=== PATIENT | male | born 1945 ===

== ENCOUNTER 2022-02-05 15:33 | Observation (INO) ==
--- NOTE | 2022-02-05 16:24 | DR.ABDMALE ---
HPI Time seen Time Seen by Provider: 02/05/22 16:23 PCP Primary Care Physician: YANG Complaint Chief Complaint Doctors Comments: 76 y/o male presents with diarrhea x 3 days. Worsened this am. Denies being around any ill individuals, no contact with farm animals, no travel hx. Started with diarrhea, brown initially. Worsened over night, started with bloody stools this am. + having lower abdominal pain, burning sensation, does not radiate. Also having abdominal cramps. Nothing makes it better, nothing makes it worse. Denies fever, did have chills. No recent respiratory illness. Was nauseous, no vomiting. Had a cardiac stent placed 1 week ago, is on plavix. Has a h/o elevated PSA, scheduled for prostate biopsies. Chief Complaint:: PT STATES " I HAVE HAD DIARRHEA FOR 3 DAYS NOW AND THIS MORNING I HAD SEVERE ABD CRAMPS WITH BRIGHT RED BLOODY DIARRHEA. I HAD A STOOL SAMPLE THIS MORNING AT THE HOSPITAL." Self Treatment fo Chief Complaint: LOMOTIOL Reviewed Nurses Notes Review: Yes Mode of arrival Mode of Arrival: Ambulatory Timing Onset of Chief Complaint: 02/02/22 PMH PMH Past Medical History: Yes Past Medical History: Coronary Artery Disease Past Surgical History: Yes Past Surgical History Comment: STENT PLACEMENT DONE LAST FRIDAY PER DAUGHTER Family History History of Family Medical Conditions: Yes Family Medical History: Diabetes Mellitus, Cancer, [place] and Hypertension Social History Does patient currently use any type of tobacco product: No Have you used tobacco products in the last 12 months: No Type of Tobacco Use: None Does any household member use tobacco: No Alcohol Use: None Do you use any recreational Drugs:: No Lives With: Spouse Lives Where: Home Infectious screening In the last 2 months have you had wt loss of >10#?: NO Have you had fever, night sweats or hemotysis?: No Have you traveled outside the country in the last 6 months?: No Isolation: Standard ROS Review of Systems Constitutional: Chills and Weakness Eyes: No Symptoms Reported ENTM: No Symptoms Reported Respiratoy: No Symptoms Reported Cardiovascular: No Symptoms Reported Gastrointestinal/Abdominal: Abdominal Pain, Diarrhea and Nausea Genitourinary: No Symptoms Reported Neurological: Weakness Musculoskeletal: No Symptoms Reported Integumentary: No Symptoms Reported Hematologic/Lymphatic: No Symptoms Reported Psychiatric: No Symptoms Reported All Other Systems: Reviewed and Negative PE Vital Signs Vital Signs: Temp Pulse Resp BP Pulse Ox O2 Del Method 06/29/20 15:55 113/59 02/05/22 18:04 81 22 135/63 97 02/05/22 15:34 98.0 F 84 20 127/75 98 Room Air General General Appearance: Alert and In No Apparent Distress Eyes Eye exam: PERRL Neck Neck Exam: Normal Inspection; negative Tenderness Respiratory Respiratory Exam: Normal Lung Sounds Bilat; negative Accessory Muscle Use or R espiratory Distress Respiratory Exam: Bilateral: Clear to Auscultation Cardiovascular Cardiovascular Exam: Regular Rate, Normal Rhythm and Normal Heart Sounds Abdominal Exam Abdominal Exam: Normal Inspection, Normal Bowel Sounds, Soft and Tenderness (mild, suprapubic region, no guarding or rebound) Back Back Exam: Normal Inspection; negative (R) CVA Tenderness or (L) CVA Tenderness Extremeties Extremities Exam: Normal Inspection; negative Edema Neurologic Neurological Exam: Alert, Oriented X3 and CN II-XII Intact; negative Motor Sensory Deficit Skin Skin Exam: Warm and Dry MDM Differential Diagnosis Differential Diagnosis: Bowel Obstruction, Gastroenteritis, Ischemic Bowel and Urolithiasis COURSE Treatment Treatment: 76 y/o male with 3 days of diarrhea, now bloody, and worsening abdominal pain/cramping. Had stool sample dropped off to lab earlier, + blood and WBCs in stool. W/u initiated. Given IV fluids. 1814 - WBC elevated at 15.4K, CMP acceptable, lactic acid acceptable at 1.2. Discussed with Dr Guillen, will admit for infectious diarrhea. Will treat with IV flagyl/cipro. Will obtain CT of the abd/pelvis. 1955 - CT with sigmoid colitis, has diverticuli, but longer than that. ROR Labs Reviewed Result Diagrams: 02/08/22 05:20 02/08/22 05:20 Laboratory: WBC 15.4 X10^3/uL (3.6-10.0) H 02/05/22 16:50 RBC 5.30 X10^6/uL (4.7-6.0) 02/05/22 16:50 Hgb 15.5 g/dL (13.5-18.0) 02/05/22 16:50 Hct 45.9 % (42.0-54.0) 02/05/22 16:50 MCV 86.6 fL (80.0-100.0) 02/05/22 16:50 MCH 29.3 pg (27.0-34.0) 02/05/22 16:50 MCHC 33.9 g/dL (33.0-35.0) 02/05/22 16:50 RDW 14.4 % (11.6-16.5) 02/05/22 16:50 Plt Count 265 X10^3/uL (150.0-450.0) 02/05/22 16:50 MPV 8.9 fL (7.4-11.0) 02/05/22 16:50 Neut % (Auto) 81.9 % (42.0-75.0) H 02/05/22 16:50 Lymph % (Auto) 11.1 % (21.0-51.0) L 02/05/22 16:50 [place] % (Auto) 6.3 % (0.0-13.0) 02/05/22 16:50 Eos % (Auto) 0.3 % (0.9-2.9) L 02/05/22 16:50 Baso % (Auto) 0.4 % (0.2-1.0) 02/05/22 16:50 Neut # (Auto) 12.7 x10^3/uL (2.2-4.8) H 02/05/22 16:50 Lymph # (Auto) 1.7 X10^3/uL (1.3-2.9) 02/05/22 16:50 [place] # (Auto) 1.0 x10^3/uL (0.3-0.8) H 02/05/22 16:50 Eos # (Auto) 0.0 x10^3/uL (0.0-0.2) 02/05/22 16:50 Baso # (Auto) 0.1 X10^3/uL (0.0-0.1) 02/05/22 16:50 Absolute Nucleated RBC 0.0 /100WBC 02/05/22 16:50 Sodium 142 mmol/L (136-145) 02/05/22 16:50 Corrected Sodium 143 mmol/L (136-145) 02/05/22 16:50 Potassium 4.0 mmol/L (3.5-5.1) 02/05/22 16:50 Chloride 104 mmol/L (98-107) 02/05/22 16:50 Carbon Dioxide 29.1 mmol/L (21-32) 02/05/22 16:50 BUN 10 mg/dL (7-18) 02/05/22 16:50 Creatinine 0.95 mg/dL (0.70-1.30) 02/05/22 16:50 Est GFR (MDRD) Af Amer > 60 (>60) 02/05/22 16:50 Est GFR (MDRD) Non-Af > 60 (>60) 02/05/22 16:50 Glucose 135 mg/dL (65-99) H 02/05/22 16:50 Lactic Acid 1.2 mmol/L (0.4-2.0) 02/05/22 16:50 Calcium 8.8 mg/dL (8.5-10.1) 02/05/22 16:50 Corrected Calcium TNP 02/05/22 16:50 Total Bilirubin 0.90 mg/dL (0.2-1.0) 02/05/22 16:50 AST 17 Units/L (15-37) 02/05/22 16:50 ALT 29 Units/L (12-78) 02/05/22 16:50 Alkaline Phosphatase 97 Units/L (46-116) 02/05/22 16:50 Total Protein 6.9 g/dL (6.4-8.2) 02/05/22 16:50 Albumin 3.5 g/dL (3.4-5.0) 02/05/22 16:50 Globulin 3.4 g/dL (2.5-4.5) 02/05/22 16:50 Albumin/Globulin Ratio 1.0 Ratio (1.1-2.1) L 02/05/22 16:50 Lipase 35 Units/L (73-393) L 02/05/22 16:50 SARS-CoV-2 (PCR) Negative (NEGATIVE) 02/05/22 18:06 Labs acceptable. Opioid Opioid Risk Tool Age (Gary box if 16-45): No History of Preadolescent Sexual Abuse: No Total: 0 Total Score Risk Category: Low Risk Copyright: Pj ERIC predicting aberrant behaviors Discharge Plan Diagnosis Discharge Problem: Acute infectious diarrhea, Colitis Discharge Plan Patient Disposition: ADMITTED INPATIENT Condition: Stable Discharge Comment: ADMITTED TO ROOM 209 Orders to Discharge Patient Discharge Orders: Discharge (Routine); Ordered 02/08/22 Ordered By: TIFFANIE CHILDS
[2022-02-05] MEDS ORDERED: NS 500 ML IV 500 ML IV ONE ×2 (16:30→17:03)
[2022-02-05 17:13] LABS: BASOPHILS # (AUTO) 0.1 X10^3/uL (0.0-0.1); BASOPHILS % (AUTO) 0.4 % (0.2-1.0); EOSINOPHILS % (AUTO) 0.3 % (0.9-2.9); HEMATOCRIT 45.9 % (42.0-54.0); HEMOGLOBIN 15.5 g/dL (13.5-18.0); LYMPHOCYTES # (AUTO) 1.7 X10^3/uL (1.3-2.9); LYMPHOCYTES % (AUTO) 11.1 % (21.0-51.0); MEAN CORPUSCULAR HEMOGLOBIN 29.3 pg (27.0-34.0); MEAN CORPUSCULAR HGB CONC 33.9 g/dL (33.0-35.0); MEAN CORPUSCULAR VOLUME 86.6 fL (80.0-100.0); MEAN PLATELET VOLUME 8.9 fL (7.4-11.0); MONOCYTES % (AUTO) 6.3 % (0.0-13.0); NEUTROPHILS # (AUTO) 12.7 x10^3/uL (2.2-4.8); NEUTROPHILS % (AUTO) 81.9 % (42.0-75.0); RED CELL DISTRIBUTION WIDTH 14.4 % (11.6-16.5); WHITE BLOOD COUNT 15.4 X10^3/uL (3.6-10.0)
[2022-02-05 17:27] LABS: ALANINE AMINOTRANSFERASE 29 Units/L (12-78); ALBUMIN 3.5 g/dL (3.4-5.0); ALKALINE PHOSPHATASE 97 Units/L (46-116); ASPARTATE AMINO TRANSFERASE 17 Units/L (15-37); BLOOD UREA NITROGEN 10 mg/dL (7-18); CALCIUM 8.8 mg/dL (8.5-10.1); CARBON DIOXIDE 29.1 mmol/L (21-32); CHLORIDE 104 mmol/L (98-107); COR NA(FOR HYPERGLY) 143 mmol/L (136-145); CREATININE 0.95 mg/dL (0.70-1.30); LIPASE 35 Units/L (73-393); SODIUM 142 mmol/L (136-145); TOTAL PROTEIN 6.9 g/dL (6.4-8.2); eGFR NON BLACK RACES > 60 (>60)
[2022-02-05 17:32] LABS: LACTIC ACID 1.2 mmol/L (0.4-2.0)
[2022-02-05] MEDS ORDERED: FLAGYL IV PREMIX 500 MG BAG 500 MG/100 ML BAG IV ONE (18:16)
[2022-02-05] MEDS ORDERED: NS 1,000 ML IV 1,000 ML ONE (18:16)
[2022-02-05] MEDS: FLAGYL IV PREMIX 500 MG BAG 500 MG/100 ML BAG IV SCH (18:26)
[2022-02-05] MEDS: NS 1,000 ML IV 1,000 ML IV SCH (18:26)
[2022-02-05 19:18] LABS: BILIRUBIN,URINE NEGATIVE (NEGATIVE); BLOOD/HEMOGLOBIN,URINE NEGATIVE (NEGATIVE); GLUCOSE, URINE NEGATIVE (NEGATIVE); KETONES,URINE 1+ (NEGATIVE); LEUKOCYTE ESTERASE ,URINE 1+ (NEGATIVE); NITRITES,URINE NEGATIVE (NEGATIVE); PROTEIN,URINE NEGATIVE (NEGATIVE); UROBILINOGEN,URINE NORMAL (NORMAL)
[2022-02-05 19:22] LABS: APPEARANCE,URINE CLEAR (CLEAR); COLOR,URINE YELLOW (YELLOW)
[2022-02-05] MEDS ORDERED: NORCO 5/325 MG TAB PO ONE (19:35)
[2022-02-05 19:37] LABS: BACTERIA,URINE NEGATIVE /HPF (NEGATIVE); HYALINE CASTS, URINE FEW /LPF (NEGATIVE); RBC,URINE NONE SEEN /HPF (0-3); SQUAMOUS EPITHELIAL CELL,UR FEW /HPF (NEGATIVE)
[2022-02-05] MEDS ORDERED: NORCO 5/325 MG TAB ONE (19:38)
--- NOTE | 2022-02-05 19:54 | CT ---
HISTORY"I HAVE HAD DIARRHEA FOR 3 DAYS NOW AND THIS MORNING I HAD SEVERE ABD CRAMPS WITH BRIGHT RED BLOODY DIARRHEA. I HAD A STOOL SAMPLE THIS MORNING AT THE HOSPITAL."STUDYABDOMEN/PELVIS W/O CONCOMPARISONCT abdomen and pelvis 08/11/2020TECHNIQUEMultiple CT axial images of the abdomen and pelvis were obtained without IV contrast. Coronal and sagittal images were reconstructed. Dose reduction techniques included Automated Exposure Control (AEC) and adjustment of mA and kV.FINDINGSThere is wall thickening involving the sigmoid colon. Pericolonic edema is present. Finding is consistent with colitis. There are diverticula in this segment of the colon and this might be the etiology for the colitis. But the segment appears rather long for this diagnosis.No bowel obstruction or free air. A normal appendix is not identified. But there is no inflammation around the cecum or at the expected location of the appendix.The lung bases are clear. Heart size is normal. Liver, gallbladder, spleen, adrenal glands, and pancreas are unremarkable.No abnormal calcifications are present in the kidneys, ureters, or urinary bladder.The kidneys have normal size and shape. There is no hydronephrosis or significant perirenal edema. The bladder is minimally distended. It has no wall thickening or perivesical edema.Degenerative changes are present in the spine. Median sternotomy wires are present. No evidence for hernia.IMPRESSION1. Sigmoid colitis, possibly from diverticulitisElectronically signed by: Thompson Yun (Feb 05, 2022 19:52:46)
[2022-02-05] MEDS ORDERED: NITROSTAT SL PRN (20:16)
[2022-02-05] MEDS: KLONOPIN TAB 1 MG PO SCH (20:49)
[2022-02-05] MEDS ORDERED: CANAGLIFLOZIN PO SCH (21:00)
[2022-02-05] MEDS ORDERED: CIPRO IV 400 MG PREMIX* 400 MG/200 ML IV.SOLN. IV SCH (21:00)
[2022-02-05] MEDS ORDERED: METFORMIN PO SCH (21:00)
[2022-02-05] MEDS ORDERED: BENADRYL CAP/TAB 25 MG PO ONE (21:18)
[2022-02-05] MEDS ORDERED: BENADRYL CAP/TAB 25 MG PO PRN (21:20)
[2022-02-06 00:03] VITALS: BMI 35.9
[2022-02-06] MEDS: FLAGYL IV PREMIX 500 MG BAG 500 MG/100 ML BAG IV SCH ×4 (03:24→21:13)
[2022-02-06] MEDS: NS 1,000 ML IV 1,000 ML IV SCH ×3 (03:24→21:03)
[2022-02-06 05:37] LABS: BASOPHILS % (AUTO) 0.5 % (0.2-1.0); EOSINOPHILS # (AUTO) 0.1 x10^3/uL (0.0-0.2); EOSINOPHILS % (AUTO) 1.6 % (0.9-2.9); HEMATOCRIT 39.2 % (42.0-54.0); HEMOGLOBIN 13.4 g/dL (13.5-18.0); LYMPHOCYTES # (AUTO) 2.3 X10^3/uL (1.3-2.9); LYMPHOCYTES % (AUTO) 28.8 % (21.0-51.0); MEAN CORPUSCULAR HEMOGLOBIN 29.6 pg (27.0-34.0); MEAN CORPUSCULAR HGB CONC 34.1 g/dL (33.0-35.0); MEAN CORPUSCULAR VOLUME 86.7 fL (80.0-100.0); MEAN PLATELET VOLUME 9.1 fL (7.4-11.0); MONOCYTES # (AUTO) 0.8 x10^3/uL (0.3-0.8); MONOCYTES % (AUTO) 9.4 % (0.0-13.0); NEUTROPHILS # (AUTO) 4.8 x10^3/uL (2.2-4.8); NEUTROPHILS % (AUTO) 59.7 % (42.0-75.0); RED BLOOD COUNT 4.52 X10^6/uL (4.7-6.0); RED CELL DISTRIBUTION WIDTH 14.2 % (11.6-16.5)
[2022-02-06 06:03] LABS: ALANINE AMINOTRANSFERASE 22 Units/L (12-78); ALBUMIN 2.7 g/dL (3.4-5.0); ALKALINE PHOSPHATASE 76 Units/L (46-116); ASPARTATE AMINO TRANSFERASE 17 Units/L (15-37); BLOOD UREA NITROGEN 9 mg/dL (7-18); CARBON DIOXIDE 25.1 mmol/L (21-32); CHLORIDE 107 mmol/L (98-107); CREATININE 0.88 mg/dL (0.70-1.30); SODIUM 141 mmol/L (136-145); TOTAL PROTEIN 5.5 g/dL (6.4-8.2); eGFR NON BLACK RACES > 60 (>60)
[2022-02-06] MEDS ORDERED: K-RIDER 10 MEQ/NS 100 ML 10 MEQ/100 ML BAG IV PRN (06:06)
[2022-02-06] MEDS ORDERED: KLOR-CON PO PRN (06:06)
[2022-02-06] MEDS ORDERED: POTASSIUM CHLORIDE LIQ 20 MEQ UDC PO PRN (06:06)
[2022-02-06] MEDS ORDERED: MICRO K EXTEN CAP 10 MEQ PO PRN (06:06)
[2022-02-06] MEDS ORDERED: POTASSIUM CHL 40 MEQ/NS 0.45% 500 ML IV PRN (06:06)
[2022-02-06] MEDS ORDERED: POTASSIUM CHL 60 MEQ/NS 0.45% 500 ML IV PRN (06:06)
[2022-02-06] MEDS: MAGNESIUM SULFATE 1 GRAM/100 mL PREMIX 1 G/100 ML BAG IV PRN ×2 (06:42→10:12)
[2022-02-06] MEDS: K-DUR TAB 20 MEQ PO PRN (06:42)
[2022-02-06] MEDS ORDERED: ASPIRIN EC 81 MG PO SCH (09:00)
[2022-02-06] MEDS: ZOSYN VIAL 3.375 GRAMS 3.375 G in NS 100 ML IV 100 ML IV SCH ×3 (10:00→21:48)
[2022-02-06] MEDS: SYNTHROID 50 mcg TAB PO SCH (10:00)
[2022-02-06] MEDS: WELLBUTRIN XL 300 MG (DAILY) PO SCH (10:00)
[2022-02-06] MEDS: BENTYL CAP 10 MG PO SCH ×3 (10:00→21:14)
[2022-02-06] MEDS: FOLIC ACID TAB 1 MG PO SCH ×2 (10:23→21:13)
[2022-02-06] MEDS ORDERED: LOVENOX INJ 40 MG SYR SC SCH (13:00)
--- NOTE | 2022-02-06 17:15 | DR.CONSULT ---
Consult - Consultation for Day of: Date: 02/06/22 - Chief Complaint Chief Complaint: Hematochezia, diarrhea - History of Present Illness History of Present Illness: Pt is a 76 y/o who is referrred for hematochezia and diarrhea. Pt has complaints of diarrhea x2-3 days, hematochezia x1 day, and lower abdominal pain. Denies dysphagia, dyspepsia, N/V, constipation, and melena. Last colon was over 10 years ago. No previous EGD reported. No family history of colon cancer. Preseted to ER with diarrhea x 3 days. Worsened this am. Denies being around any ill individuals, no contact with farm animals, no travel hx. Started with diarrhea, brown initially. Worsened over night, started with bloody stools this am. + having lower abdominal pain, burning sensation, does not radiate. Also having abdominal cramps. Nothing makes it better, nothing makes it worse. Denies fever, did have chills. No recent respiratory illness. Was nauseous, no vomiting. Had a cardiac stent placed 1 week ago, is on plavix. Has a h/o elevated PSA, scheduled for prostate biopsies. Chief Complaint:: PT STATES " I HAVE HAD DIARRHEA FOR 3 DAYS NOW AND THIS MORNING I HAD SEVERE ABD CRAMPS WITH BRIGHT RED BLOODY DIARRHEA. I HAD A STOOL SAMPLE THIS MORNING AT THE HOSPITAL." - Past Medical History Past Medical History: Coronary Artery Disease - Past Surgical History Surgical History: Angioplasty/Stents, CABG/Valve Surgery, Joint Replacement, Ortho Surgery - Family History Family Medical History: Diabetes Mellitus, Cancer, [place], Hypertension - Social History Does patient currently use any type of tobacco product: No Have you used tobacco products in the last 12 months: No Type of Tobacco Use: None Does any household member use tobacco: No Alcohol Use: None Drug Use: None - Medications Home Medications: ciprofloxacin [From Cipro] Allergy (Verified 02/06/22 06:59) CONTINUE taking the following medications clonazepam 1 mg tablet 1 tab PO HS 02/05/22 [History] dicyclomine 20 mg tablet 1 tab PO TID 02/05/22 [History] minocycline 50 mg capsule 1 cap PO DAILY 02/05/22 [History] nitroglycerin 0.4 mg sublingual tablet 1 tab sublingual PRN PRN 02/05/22 [History] rosuvastatin 5 mg tablet 1 tab PO HS 02/05/22 [History] sennosides 8.6 mg-docusate sodium 50 mg tablet (Senexon-S) 1 tab PO DAILY 02/05/22 [History] alfuzosin 10 mg tablet,extended release 24 hr 1 tab PO HS 02/06/22 [History] aspirin 81 mg tablet 81 mg PO DAILY 02/06/22 [History] bupropion HCl 300 mg 24 hr tablet, extended release 1 tab PO DAILY 02/06/22 [History] clopidogrel 75 mg tablet 1 tab PO HS 02/06/22 [History] folic acid 1 mg tablet 1 tab PO BID 02/06/22 [History] levothyroxine 50 mcg tablet 1 tab PO DAILY 02/06/22 [History] metoprolol succinate 25 mg tablet,extended release 24 hr 1 tab PO HS 02/06/22 [History] mirabegron 50 mg tablet,extended release 24 hr (Myrbetriq) 50 mg PO DAILY 02/06/22 [History] montelukast 10 mg tablet (Singulair) 10 mg PO QHS 02/06/22 [History] - Review of Systems Constitutional: No Symptoms Reported. denies: See HPI, Fever, Chills, Sweats, Weakness, Malaise, Other Eyes: No Symptoms Reported. denies: See HPI, Pain, Vision Change, Conjunctivae Inflammation, Eyelid Inflammation, Redness, Other ENT: No Symptoms Reported. denies: See HPI, Ear Pain, Ear Discharge, Nose Pain, Nose Discharge, Nose Congestion, Mouth Pain, Mouth Swelling, Throat Pain, Throat Swelling, Other Respiratory: No Symptoms Reported. denies: See HPI, Cough, Dry, Shortness of Breath, Hemoptysis, SOB with Excertion, Pleuritic Pain, Sputum, Wheezing, Other Cardiovascular: No Symptoms Reported. denies: Chest Pain, See HPI, Palpitations, Orthopnea, Paroxysmal Noc. Dyspnea, Edema, Light Headedness, Other Gastrointestinal: Abdominal Pain (Lower), Diarrhea, Hematochezia. denies: No Symptoms Reported, See HPI, Nausea, Vomiting, Constipation, Melena, Other Genitourinary: No Symptoms Reported. denies: See HPI, Dysuria, Frequency, Incontinence, Hematuria, Retention, Other Musculoskeletal: No Symptoms Reported. denies: See HPI, Shoulder Pain, Arm Pain, Back Pain, Hand Pain, Leg Pain, Foot Pain, Neck Pain, Other Skin: No Symptoms Reported. denies: See HPI, Rash, Lesions, Jaundice, Bruising, Wound, Ecchymosis, Other Neurological: No Symptoms Reported. denies: See HPI, Weakness, Numbness, Incoordination, Change in Speech, Confusion, Seizures, Other - Physical Exam Vital Signs: Temperature 98.4 F Pulse Rate [Left Radial] 63 Pulse Rate 81 Respiratory Rate 20 Blood Pressure [Left Arm] 115/57 Blood Pressure 135/63 O2 Sat by Pulse Oximetry 95 Oriented: Normal Eyes: Normal Ear: Normal Nose: Normal Throat: Normal Respiratory: Clear Throughout Cardiovascular: Normal : Normal Auscultation: Bowel Sounds: Normal Tenderness: Normal Skin: Normal Musculoskeletal: Normal Psychiatric: Normal Mood Description: Calm Speech Pattern: Clear - Plan Plan: Assessment. 1. Hematochezia, diarrhea, abnormal CT scan. Plan. 1. Complete course of antibiotics, will need colonoscopy as outpatient. Plan d/w Dr. Franco - Allergies Allergies/Adverse Reactions: Allergies Allergy/AdvReac Type Severity Reaction Status Date / Time ciprofloxacin [From Cipro] Allergy Verified 02/06/22 06:59
--- NOTE | 2022-02-06 19:06 | DR.H&P ---
H&P - History & Physical for Day of: H&P Date: 02/05/22 - Chief Complaint Chief Complaint: DIARRHEA, ABDOMINAL PAIN - History of Present Illness History of Present Illness: IS A 76 YEAR OLD PATIENT OF OURS. HE PRESENTED TO THE ER WITH COMPLAINTS OF WORSENING DIARRHEA. DIARRHEA FIRST STARTED THREE DAYS AGO. INTITIALLY, IT WAS BROWN IN COLOR, BUT HE BEGAN NOTICING BLOOD IN STOOLS THIS MORNING. HE ALSO ADMITS TO LOWER ABDOMINAL PAIN AND CRAMPING. PAIN IS DESCRIBED CRAMPING AND A BURNING SENSATION. PAIN DOES NOT RADIATE. NOTHING MAKES PAIN BETTER OR WORSE. TENDERNESS NOTED TO SUPRAPUBIC REGION ON EXAMINATION. HYPERACTIVE BOWEL SOUNDS NOTED TO AUSCULTATION. THE DENIES FEVER OR ANY RESPIRATORY ILLNESS. HE REPORTS BEING SCHEDULED FOR PROSTATE BIOPSIES. AN OUTPATIENT STOOL SAMPLE WAS SENT TO LAB EARLIER IN THE DAY, PRIOR TO ARRIVAL. HE HAS A PMH OF CORONARY ARTERY DISEASE. HE REPORTS HAVING CARDIAC STENT PLACEMENT ON 01/28/22. HE IS CURRENTLY ON ASPIRIN AND PLAVIX. ON ARRIVAL TO THE ER, VITALS WERE: 98.0-84-20-98%-127/75. LABS WERE OBTAINED. WBC 15.4, RBC 5.30, HGB 15.5, HCT 45.9, SODIUM 142, POTASSIUM 4.0, CHLORIDE 104, BUN 10, CREATININE 0.95, GLUCOSE 135, LACTIC ACID 1.2, CALCIUM 8.8, AST 17, ALT 29, ALK PHOS 97, TOTAL PROTEIN 6.9, ALBUMIN 3.5. A URINALYSIS WAS OBTAINED AND WAS UNREMARKABLE. AN ABDOMEN/PELVIS CT WITHOUT CONTRAST WAS OBTAINED AND REVEALED: 1. Sigmoid colitis, possibly from diverticulitis. IN THE ER, HE WAS GIVEN A NORMAL SALINE BOLUS, NORCO 5/325MG PO X 1. HE WAS ADMITTED TO THE HOSPITAL FOR FURTHER EVALUATION AND TREATMENT OF COLITIS, INFECTIOUS DIARRHEA. HE WAS STARTED ON NORMAL SALINE AT 125 ML/HR, CIPRO 400MG IV Q12H, FLAGYL 500MG IV Q6H, TYLENOL 650MG PO Q4H PRN, AND THE POTASSIUM AND MAGNESIUM PROTOCOLS. HIS HOME MEDICATIONS OF ECOTRIN, WELLBUTRIN, KLONOPIN, PLAVIX, BENTYL, FOLIC ACID, SYNTHROID, NITROSTAT, AND CRESTOR WERE RESUMED. 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 OTHERWISE, WE PLAN TO FOLLOW-UP WITH AM LABS AND CONTINUE TO MONITOR. AFTER HIS FIRST DOSE OF CIPRO, PATIENT BEGAN HAVING ITCHING, STREAKING UP THE ARM, AND FEELING FLUSHED. CIPRO WAS DISCONTINUED AND HE WAS STARTED ON ZOSYN 3.375G IV TID. TIME SPENT ON CLINICAL ASSESSMENT, REVIEWING LABS AND IMAGING, DECISION MAKING, AND DOCUMENTATION GREATER THAN 75 MINUTES. - Past Medical History Past Medical History: Coronary Artery Disease - Past Surgical History Surgical History: Angioplasty/Stents, CABG/Valve Surgery, Joint Replacement, Ortho Surgery - Family History Family Medical History: Diabetes Mellitus, Cancer, [place], Hypertension - Social History Does patient currently use any type of tobacco product: No Have you used tobacco products in the last 12 months: No Type of Tobacco Use: None Does any household member use tobacco: No Alcohol Use: None Drug Use: None - Medications Home Medications: ciprofloxacin [From Cipro] Allergy (Verified 02/06/22 06:59) CONTINUE taking the following medications clonazepam 1 mg tablet 1 tab PO HS 02/05/22 [History] dicyclomine 20 mg tablet 1 tab PO TID 02/05/22 [History] minocycline 50 mg capsule 1 cap PO DAILY 02/05/22 [History] nitroglycerin 0.4 mg sublingual tablet 1 tab sublingual PRN PRN 02/05/22 [History] rosuvastatin 5 mg tablet 1 tab PO HS 02/05/22 [History] sennosides 8.6 mg-docusate sodium 50 mg tablet (Senexon-S) 1 tab PO DAILY 02/05/22 [History] alfuzosin 10 mg tablet,extended release 24 hr 1 tab PO HS 02/06/22 [History] aspirin 81 mg tablet 81 mg PO DAILY 02/06/22 [History] bupropion HCl 300 mg 24 hr tablet, extended release 1 tab PO DAILY 02/06/22 [History] clopidogrel 75 mg tablet 1 tab PO HS 02/06/22 [History] folic acid 1 mg tablet 1 tab PO BID 02/06/22 [History] levothyroxine 50 mcg tablet 1 tab PO DAILY 02/06/22 [History] metoprolol succinate 25 mg tablet,extended release 24 hr 1 tab PO HS 02/06/22 [History] mirabegron 50 mg tablet,extended release 24 hr (Myrbetriq) 50 mg PO DAILY 02/06/22 [History] montelukast 10 mg tablet (Singulair) 10 mg PO QHS 02/06/22 [History] - Review of Systems Constitutional: Weakness Eyes: No Symptoms Reported ENT: No Symptoms Reported Respiratory: No Symptoms Reported Cardiovascular: No Symptoms Reported Gastrointestinal: Abdominal Pain, Hematochezia Genitourinary: No Symptoms Reported Musculoskeletal: No Symptoms Reported Skin: No Symptoms Reported Neurological: Weakness - Physical Exam Vital Signs: Temperature 98.4 F Pulse Rate [Left Radial] 63 Pulse Rate 81 Respiratory Rate 20 Blood Pressure [Left Arm] 115/57 Blood Pressure 135/63 O2 Sat by Pulse Oximetry 95 Oriented: Normal Eyes: Normal Ear: Normal Nose: Normal Throat: Normal Respiratory: Clear Throughout Cardiovascular: Normal : Normal Auscultation: Bowel Sounds: Increased Palpation: Normal Tenderness: Suprapubic, Mild Skin: Normal Musculoskeletal: Normal Psychiatric: Normal Mood Description: Calm Affect: Normal Speech Pattern: Clear - Assessment/Plan (1) Colitis Status: Acute Plan: ADMIT, NORMAL SALINE AT 125 ML/HR, ZOSYN 3.375G IV TID, FLAGYL 500MG IV Q6H, TYLENOL 650MG PO Q4H PRN, AND THE POTASSIUM AND MAGNESIUM PROTOCOLS. HIS HOME MEDICATIONS OF ECOTRIN, WELLBUTRIN, KLONOPIN, PLAVIX, BENTYL, FOLIC ACID, SYNTHROID, NITROSTAT, AND CRESTOR WERE RESUMED. CONSULT GI (2) Acute infectious diarrhea Status: Acute (3) Abdominal pain Qualifiers: Abdominal location: lower abdomen, unspecified Qualified Code(s): R10.30 - Lower abdominal pain, unspecified Status: Acute (4) Coronary artery disease Qualifiers: Coronary Disease-Associated Artery/Lesion type: [place] artery [place] vs. transplanted heart: [place] heart Status: Chronic (5) Status post arterial stent Status: Acute - Allergies Allergies/Adverse Reactions: Allergies Allergy/AdvReac Type Severity Reaction Status Date / Time ciprofloxacin [From Cipro] Allergy Verified 02/06/22 06:59
[2022-02-06] MEDS: CRESTOR TAB 10 MG PO SCH (21:12)
[2022-02-06] MEDS: PLAVIX PO SCH (21:13)
[2022-02-06] MEDS: KLONOPIN TAB 1 MG PO SCH (21:13)
[2022-02-07] MEDS: NS 1,000 ML IV 1,000 ML IV SCH ×3 (01:00→22:36)
[2022-02-07] MEDS: FLAGYL IV PREMIX 500 MG BAG 500 MG/100 ML BAG IV SCH ×4 (03:22→21:48)
[2022-02-07] MEDS: TYLENOL 325 MG TAB PO PRN (03:27)
[2022-02-07 05:42] LABS: BASOPHILS # (AUTO) 0.1 X10^3/uL (0.0-0.1); BASOPHILS % (AUTO) 0.7 % (0.2-1.0); EOSINOPHILS # (AUTO) 0.1 x10^3/uL (0.0-0.2); HEMATOCRIT 38.2 % (42.0-54.0); LYMPHOCYTES # (AUTO) 1.9 X10^3/uL (1.3-2.9); LYMPHOCYTES % (AUTO) 25.9 % (21.0-51.0); MEAN CORPUSCULAR HEMOGLOBIN 29.7 pg (27.0-34.0); MEAN CORPUSCULAR HGB CONC 34.1 g/dL (33.0-35.0); MEAN CORPUSCULAR VOLUME 87.1 fL (80.0-100.0); MEAN PLATELET VOLUME 9.2 fL (7.4-11.0); MONOCYTES # (AUTO) 0.6 x10^3/uL (0.3-0.8); MONOCYTES % (AUTO) 8.6 % (0.0-13.0); NEUTROPHILS # (AUTO) 4.6 x10^3/uL (2.2-4.8); NEUTROPHILS % (AUTO) 62.8 % (42.0-75.0); RED BLOOD COUNT 4.39 X10^6/uL (4.7-6.0); RED CELL DISTRIBUTION WIDTH 14.1 % (11.6-16.5); WHITE BLOOD COUNT 7.3 X10^3/uL (3.6-10.0)
[2022-02-07 05:46] LABS: ALANINE AMINOTRANSFERASE 22 Units/L (12-78); ALBUMIN 2.6 g/dL (3.4-5.0); ALKALINE PHOSPHATASE 70 Units/L (46-116); ASPARTATE AMINO TRANSFERASE 14 Units/L (15-37); BLOOD UREA NITROGEN 8 mg/dL (7-18); CALCIUM 8.1 mg/dL (8.5-10.1); CARBON DIOXIDE 26.5 mmol/L (21-32); CHLORIDE 109 mmol/L (98-107); COR CA(FOR HYPOALB) 9.2 mg/dL (8.5-10.1); COR NA(FOR HYPERGLY) 141 mmol/L (136-145); CREATININE 0.94 mg/dL (0.70-1.30); MAGNESIUM 1.7 mg/dL (1.7-2.9); SODIUM 141 mmol/L (136-145); TOTAL PROTEIN 5.3 g/dL (6.4-8.2); eGFR NON BLACK RACES > 60 (>60)
[2022-02-07] MEDS: BENTYL CAP 10 MG PO SCH ×3 (05:50→21:46)
[2022-02-07] MEDS: ZOSYN VIAL 3.375 GRAMS 3.375 G in NS 100 ML IV 100 ML IV SCH ×3 (05:50→21:45)
[2022-02-07] MEDS: WELLBUTRIN XL 300 MG (DAILY) PO SCH (10:11)
[2022-02-07] MEDS: FOLIC ACID TAB 1 MG PO SCH ×2 (10:12→21:47)
[2022-02-07] MEDS: SYNTHROID 50 mcg TAB PO SCH (10:12)
[2022-02-07] MEDS: MAGNESIUM SULFATE 1 GRAM/100 mL PREMIX 1 G/100 ML BAG IV PRN ×2 (14:50→17:16)
[2022-02-07] MEDS: K-DUR TAB 20 MEQ PO PRN (17:17)
[2022-02-07] MEDS ORDERED: ASPIRIN EC 81 MG PO SCH (21:00)
[2022-02-07] MEDS: PLAVIX PO SCH (21:46)
[2022-02-07] MEDS: KLONOPIN TAB 1 MG PO SCH (21:47)
[2022-02-07] MEDS: CRESTOR TAB 10 MG PO SCH (21:48)
[2022-02-08] MEDS: FLAGYL IV PREMIX 500 MG BAG 500 MG/100 ML BAG IV SCH ×2 (03:00→09:43)
[2022-02-08] MEDS: BENTYL CAP 10 MG PO SCH (05:55)
[2022-02-08] MEDS: ZOSYN VIAL 3.375 GRAMS 3.375 G in NS 100 ML IV 100 ML IV SCH (05:55)
[2022-02-08 06:01] LABS: BASOPHILS # (AUTO) 0.1 X10^3/uL (0.0-0.1); BASOPHILS % (AUTO) 0.8 % (0.2-1.0); EOSINOPHILS # (AUTO) 0.2 x10^3/uL (0.0-0.2); EOSINOPHILS % (AUTO) 2.8 % (0.9-2.9); HEMATOCRIT 38.8 % (42.0-54.0); HEMOGLOBIN 13.2 g/dL (13.5-18.0); LYMPHOCYTES # (AUTO) 1.9 X10^3/uL (1.3-2.9); LYMPHOCYTES % (AUTO) 27.9 % (21.0-51.0); MEAN CORPUSCULAR HEMOGLOBIN 29.6 pg (27.0-34.0); MEAN CORPUSCULAR VOLUME 86.9 fL (80.0-100.0); MEAN PLATELET VOLUME 9.1 fL (7.4-11.0); MONOCYTES # (AUTO) 0.6 x10^3/uL (0.3-0.8); NEUTROPHILS # (AUTO) 3.9 x10^3/uL (2.2-4.8); NEUTROPHILS % (AUTO) 59.5 % (42.0-75.0); RED BLOOD COUNT 4.46 X10^6/uL (4.7-6.0); WHITE BLOOD COUNT 6.6 X10^3/uL (3.6-10.0)
[2022-02-08 06:11] LABS: ALANINE AMINOTRANSFERASE 23 Units/L (12-78); ALBUMIN 2.6 g/dL (3.4-5.0); ALKALINE PHOSPHATASE 76 Units/L (46-116); ASPARTATE AMINO TRANSFERASE 20 Units/L (15-37); BLOOD UREA NITROGEN 8 mg/dL (7-18); CALCIUM 8.1 mg/dL (8.5-10.1); CARBON DIOXIDE 26.7 mmol/L (21-32); CHLORIDE 110 mmol/L (98-107); COR CA(FOR HYPOALB) 9.2 mg/dL (8.5-10.1); COR NA(FOR HYPERGLY) 142 mmol/L (136-145); CREATININE 0.96 mg/dL (0.70-1.30); MAGNESIUM 1.7 mg/dL (1.7-2.9); SODIUM 142 mmol/L (136-145); TOTAL PROTEIN 5.3 g/dL (6.4-8.2); eGFR NON BLACK RACES > 60 (>60)
[2022-02-08] MEDS: K-DUR TAB 20 MEQ PO PRN (06:19)
[2022-02-08] MEDS: TYLENOL 325 MG TAB PO PRN (06:38)
[2022-02-08] MEDS: SYNTHROID 50 mcg TAB PO SCH (09:43)
[2022-02-08] MEDS: FOLIC ACID TAB 1 MG PO SCH (09:43)
[2022-02-08] MEDS: WELLBUTRIN XL 300 MG (DAILY) PO SCH (09:44)
[2022-02-08] MEDS: NS 1,000 ML IV 1,000 ML IV SCH (11:31)
[2022-02-08 14:05] VITALS: BP 135/63
== END 2022-02-08 13:50 | disposition home or self-care (01) ==
LOC: MED/SURG 15:33 → ER 15:33 → MED/SURG 20:11
PROVIDERS: ADMIT Internal Medicine; ATTEND Internal Medicine
DX: Z95.5 Presence of coronary angioplasty implant and graft; A09 Infectious gastroenteritis and colitis, unspecified; Z20.822 Contact with and (suspected) exposure to COVID-19; R10.30 Lower abdominal pain, unspecified; K92.1 Melena; I25.10 Atherosclerotic heart disease of native coronary artery without angina pectoris